=== PATIENT | male | born 1960 | race African-American/Black ===

== ENCOUNTER 2020-03-25 07:57 | Emergency (ER) | payer MEDICAID ==
[~2020-03-25] VITALS: Ht 180.3 cm; Wt 77.3 kg
[2020-03-25 08:09] VITALS: BP 176/122
[2020-03-25] MEDS ORDERED: IPRATROPIUM BROMIDE (0.02%) 0.5MG/2.5ML NEB HHN STA (10:21)
[2020-03-25] MEDS ORDERED: ALBUTEROL (0.083%) 2.5MG/3ML NEB HHN STA (10:21)
[2020-03-25] MEDS ORDERED: PREDNISONE 20MG TABLET PO STA (10:21)
[2020-03-25] MEDS ORDERED: AZITHROMYCIN 500 MG TABLET PO ONE (12:30)
[2020-03-25] MEDS ORDERED: ALBUTEROL 6.7GM HFA INHALER ORI ONE (12:30)
== END 2020-03-25 16:53 | disposition home or self-care (01) ==
LOC: ER 08:22
DX: R06.00 Dyspnea, unspecified (principal); R07.89 Other chest pain; Z20.822 Contact with and (suspected) exposure to COVID-19; I11.0 Hypertensive heart disease with heart failure; I50.9 Heart failure, unspecified; F14.10 Cocaine abuse, uncomplicated; F12.10 Cannabis abuse, uncomplicated
CPT/HCPCS: 71045; 93005; 94640; 99283; J7512; Z7610